=== PATIENT | male | born 1995 | race Caucasian/White ===

== ENCOUNTER 2019-11-29 04:19 | Emergency (ER) | payer MEDICAID ==
[~2019-11-29] VITALS: Ht 167.6 cm; Wt 65.8 kg
--- NOTE | 2019-11-29 04:35 | NUR ---
PT BIBA C/O RECTAL PAIN. PT AAOX4,VSS, RESPIRATIONS EVEN AND UNLABORED ON RA W/ NAD NOTED. PT CONNECTED TO THE MONITOR AND POX
--- NOTE | 2019-11-29 06:04 | NUR ---
Patient's father was called. 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 Patient is provided with a bus pass.
--- NOTE | 2019-11-29 06:04 | NUR ---
Patient discharged to home in stable condition. Written and verbal after care instructions given. Patient verbalizes understanding of instruction.
[2019-11-29 06:05] VITALS: BP 110/63
== END 2019-11-29 06:05 | disposition home or self-care (01) ==
LOC: ER 04:21
DX: K64.4 Residual hemorrhoidal skin tags (principal); F20.9 Schizophrenia, unspecified; F17.200 Nicotine dependence, unspecified, uncomplicated; Z60.2 Problems related to living alone

== ENCOUNTER 2019-12-23 20:03 | Emergency (ER) | payer MEDICAID, OTHER ==
[~2019-12-23] VITALS: Ht 167.6 cm; Wt 65.8 kg
[2019-12-23 20:06] VITALS: BP 150/94
--- NOTE | 2019-12-23 20:09 | NUR ---
PT BIB [employer] FOR BIZARRE BEHAVIOR AND MEDICAL CLEARANCE. PT HAS NO MEDICAL COMPLAINTS AT THIS TIME. PT APPEARS TO BE AGITATED. PT CONNECTED TO THE MONITOR AND POX. AWAITING FOR MD FLORES
--- NOTE | 2019-12-23 20:50 | NUR ---
Patient discharged to [facility] in stable condition. Written and verbal after care instructions given. Patient verbalizes understanding of instruction.
== END 2019-12-23 20:50 ==
LOC: ER 20:05
DX: R46.1 Bizarre personal appearance (principal); Z60.2 Problems related to living alone

== ENCOUNTER 2021-01-14 17:16 | Emergency (ER) | payer MEDICAID, OTHER ==
[~2021-01-14] VITALS: Ht 154.9 cm; Wt 65.8 kg
[2021-01-14] MEDS ORDERED: OLANZAPINE 10 MG VIAL IM ONE ×2 (18:00)
[2021-01-14] MEDS ORDERED: LORAZEPAM INJ 2 MG/ML VIAL IM ONE (18:00)
[2021-01-14] MEDS ORDERED: LORAZEPAM INJ 2 MG/ML VIAL ONE (18:00)
--- NOTE | 2021-01-14 18:08 | NUR ---
BIBRA 58 and [employer] for bizarre behavior, per EMS/[employer] "patient wants to kill himself swinging his skateboard". On room air, sitter at bedside for constant monitoring. Kept comfortable, will continue to monitor accordingly.
[2021-01-14 18:36] LABS: BILIRUBIN,URINE SMALL (NEGATIVE); COLOR,URINE YELLOW (YELLOW); LEUKOCYTE ESTERASE ,URINE NEGATIVE (NEGATIVE); NITRITE, URINE NEGATIVE (NEGATIVE); PROTEIN,URINE TRACE mg/dl (NEGATIVE); UGLUCOSE NEGATIVE (NEGATIVE); UROBILINOGEN,URINE 0.2 EU/dL (0.2)
[2021-01-14 18:42] LABS: CALCIUM, SERUM 9.7 mg/dL (8.5-10.1); CARBON DIOXIDE 24 mmol/L (21-32); CHLORIDE 99 mmol/L (98-107); CREATININE 1.6 mg/dL (0.6-1.3); GLUCOSE 93 mg/dL (74-106); POTASSIUM 3.1 mmol/L (3.5-5.1); SODIUM SERUM 139 mmol/L (136-145); UREA NITROGEN, BLOOD 24 mg/dL (7-18)
[2021-01-14 18:46] LABS: CREATINE KINASE, TOTAL 221 U/L (39-308)
[2021-01-14 18:47] LABS: ALANINE AMINOTRANSFERASE 30 U/L (12-78); ALBUMIN 5.1 g/dL (3.4-5.0); ALKALINE PHOSPHATASE 90 U/L (46-116); ASPARTATE AMINOTRANSFERASE 21 U/L (15-37); BILIRUBIN,DIRECT 0.2 mg/dL (0.0-0.2); BILIRUBIN,TOTAL 0.7 mg/dL (0.2-1.0); TOTAL PROTEIN, SERUM 9.3 g/dL (6.4-8.2)
[2021-01-14 18:47] LABS: BACTERIA,URINE None seen /HPF (None Seen); MUCUS,URINE Few /LPF (None Seen); RBC,URINE 0-2 /HPF (0-2); SQUAMOUS EPITHELIAL CELL,UR 0-2 /HPF (None Seen); WBC,URINE 0-2 /HPF (0-3)
[2021-01-14 18:48] LABS: ALCOHOL, BLOOD < 10 mg/dL (0-0)
[2021-01-14 19:46] LABS: BASOPHILS % (AUTO) 0.3 % (0.0-2.0); EOSINOPHILS % (AUTO) 0.2 % (0.0-6.0); HEMATOCRIT 48 % (39-51); HEMOGLOBIN 16.2 g/dL (13.5-17.5); LYMPHOCYTES # (AUTO) 4.4 K/uL (0.8-4.8); MEAN CORPUSCULAR HGB CONC 34 g/dl (31.0-36.0); MEAN CORPUSCULAR VOLUME 93 fL (80-96); MONOCYTES # (AUTO) 1.1 K/uL (0.1-1.30); MONOCYTES % (AUTO) 8.2 % (2.0-12.0); NEUTROPHILS # (AUTO) 8.1 K/uL (1.8-8.9); NEUTROPHILS % (AUTO) 59.3 % (43.0-81.0); PLATELET COUNT (AUTO) 337 K/uL (150-450); RED BLOOD CELL COUNT(AUTO) 5.11 MIL/uL (4.5-6.0); WHITE BLOOD COUNT (AUTO) 13.7 K/uL (4.3-11.0)
--- NOTE | 2021-01-14 19:56 | NUR ---
UPDATED JEET HAYES
--- NOTE | 2021-01-14 21:07 | NUR ---
COVID SPECIMEN COLLECTED AND SENT TO LAB
--- NOTE | 2021-01-14 22:00 | NUR ---
PATIENT RESTING IN BED. VSS. PATIENT NOT ANSWERING STAFF QUESTIONS AT THIS TIME. PATINET CONNECTED TO MANAGER ETL.
--- NOTE | 2021-01-15 02:05 | NUR ---
Patient discharged to home in stable condition. Written and verbal after care instructions given. Patient verbalizes understanding of instruction.
[2021-01-15 06:03] VITALS: BP 134/68
== END 2021-01-15 02:05 | disposition home or self-care (01) ==
LOC: ER 17:22
DX: F29 Unspecified psychosis not due to a substance or known physiological condition (principal); F15.10 Other stimulant abuse, uncomplicated; Z20.822 Contact with and (suspected) exposure to COVID-19; F20.9 Schizophrenia, unspecified; F17.200 Nicotine dependence, unspecified, uncomplicated; Z85.9 Personal history of malignant neoplasm, unspecified
CPT/HCPCS: 36415; 80048; 80076; 80143; 80307; 80320; 81001; 82550; 85025; 87426; 96372 ×2; 99285; C9803; J2060; J3490; G0480

== ENCOUNTER 2021-11-29 15:36 | Emergency (ER) | payer MEDICAID, OTHER ==
[~2021-11-29] VITALS: Ht 167.6 cm; Wt 79.4 kg
[2021-11-29] MEDS ORDERED: LORAZEPAM INJ 2 MG/ML VIAL IM ONE (16:00)
--- NOTE | 2021-11-29 16:00 | NUR ---
MEGAN RA60 "From Home Bizarre Behavior OD psych". On room air, breathing evenly and unlabored. Kept comfortable, will continue to monitor accordingly.
[2021-11-29] MEDS ORDERED: LORAZEPAM INJ 2 MG/ML VIAL ONE (16:12)
[2021-11-29 16:24] LABS: BASOPHILS % (AUTO) 0.3 % (0.0-2.0); EOSINOPHILS % (AUTO) 0.2 % (0.0-6.0); HEMATOCRIT 38 % (39-51); LYMPHOCYTES # (AUTO) 3.5 K/uL (0.8-4.8); LYMPHOCYTES % (AUTO) 29.5 % (20.0-44.0); MEAN CORPUSCULAR HGB CONC 34 g/dl (31.0-36.0); MEAN CORPUSCULAR VOLUME 90 fL (80-96); MONOCYTES # (AUTO) 0.9 K/uL (0.1-1.30); MONOCYTES % (AUTO) 7.6 % (2.0-12.0); NEUTROPHILS # (AUTO) 7.4 K/uL (1.8-8.9); NEUTROPHILS % (AUTO) 62.4 % (43.0-81.0); PLATELET COUNT (AUTO) 263 K/uL (150-450); RED BLOOD CELL COUNT(AUTO) 4.29 MIL/uL (4.5-6.0); WHITE BLOOD COUNT (AUTO) 11.9 K/uL (4.3-11.0)
[2021-11-29 16:52] LABS: CALCIUM, SERUM 9.1 mg/dL (8.5-10.1); CARBON DIOXIDE 23 mmol/L (21-32); CHLORIDE 107 mmol/L (98-107); GLUCOSE 87 mg/dL (74-106); POTASSIUM 3.3 mmol/L (3.5-5.1); SODIUM SERUM 139 mmol/L (136-145); UREA NITROGEN, BLOOD 11 mg/dL (7-18)
[2021-11-29 17:06] LABS: ALANINE AMINOTRANSFERASE 29 U/L (12-78); ALBUMIN 4.3 g/dL (3.4-5.0); ALCOHOL, BLOOD < 3 mg/dL (0-0); ALKALINE PHOSPHATASE 69 U/L (46-116); ASPARTATE AMINOTRANSFERASE 30 U/L (15-37); BILIRUBIN,DIRECT 0.1 mg/dL (0.0-0.2); BILIRUBIN,TOTAL 0.3 mg/dL (0.2-1.0); TOTAL PROTEIN, SERUM 7.6 g/dL (6.4-8.2)
[2021-11-29 17:07] LABS: ACETAMINOPHEN 0 ug/ml (10-30)
[2021-11-29 18:28] LABS: BILIRUBIN,URINE NEGATIVE (NEGATIVE); COLOR,URINE YELLOW (YELLOW); LEUKOCYTE ESTERASE ,URINE NEGATIVE (NEGATIVE); NITRITE, URINE NEGATIVE (NEGATIVE); PROTEIN,URINE NEGATIVE (NEGATIVE); UGLUCOSE NEGATIVE (NEGATIVE); UROBILINOGEN,URINE 0.2 EU/dL (0.2)
--- NOTE | 2021-11-29 19:46 | NUR ---
AMITA FATHER [phone]
[2021-11-29 19:51] LABS: RBC,URINE 0-2 /HPF (0-2); WBC,URINE 0-2 /HPF (0-3)
[2021-11-29 19:52] LABS: BACTERIA,URINE None seen /HPF (None Seen); MUCUS,URINE Many /LPF (None Seen); SQUAMOUS EPITHELIAL CELL,UR 0-2 /HPF (None Seen)
--- NOTE | 2021-11-29 20:55 | NUR ---
Patient discharged to home in stable condition. Written and verbal after care instructions given. Patient verbalizes understanding of instruction.
[2021-11-29 21:09] VITALS: BP 141/71
== END 2021-11-29 20:55 | disposition home or self-care (01) ==
LOC: ER 15:37
DX: F12.921 Cannabis use, unspecified with intoxication delirium (principal); F15.90 Other stimulant use, unspecified, uncomplicated; F20.9 Schizophrenia, unspecified; Z60.2 Problems related to living alone; Z88.8 Allergy status to other drugs, medicaments and biological substances
CPT/HCPCS: 99283; 96372; 85025; 80048; 80076; 81001; 36415; 80143; 80320; 80307; J2060; G0480

== ENCOUNTER 2023-07-25 15:05 | Emergency (ER) | payer OTHER ==
[~2023-07-25] VITALS: Ht 165.1 cm; Wt 72.1 kg
[2023-07-25 16:04] LABS: BASOPHILS # (AUTO) 0.1 K/uL (0.0-0.2); BASOPHILS % (AUTO) 0.6 % (0.0-2.0); EOSINOPHILS % (AUTO) 0.4 % (0.0-6.0); HEMATOCRIT 44 % (39-51); HEMOGLOBIN 14.7 g/dL (13.5-17.5); LYMPHOCYTES # (AUTO) 2.8 K/uL (0.8-4.8); LYMPHOCYTES % (AUTO) 22.4 % (20.0-44.0); MEAN CORPUSCULAR HEMOGLOBIN 30 PG (26.0-33.0); MEAN CORPUSCULAR HGB CONC 34 g/dl (31.0-36.0); MEAN CORPUSCULAR VOLUME 88 fL (80-96); MONOCYTES # (AUTO) 1.1 K/uL (0.1-1.30); MONOCYTES % (AUTO) 8.8 % (2.0-12.0); NEUTROPHILS # (AUTO) 8.5 K/uL (1.8-8.9); NEUTROPHILS % (AUTO) 67.8 % (43.0-81.0); PLATELET COUNT (AUTO) 361 K/uL (150-450); RED BLOOD CELL COUNT(AUTO) 4.94 MIL/uL (4.5-6.0); RED CELL DISTRIBUTION WIDTH 14.5 % (11.5-15.0); WHITE BLOOD COUNT (AUTO) 12.6 K/uL (4.3-11.0)
[2023-07-25 16:07] LABS: CALCIUM, SERUM 9.9 mg/dL (8.5-10.1); CARBON DIOXIDE 28 mmol/L (21-32); CHLORIDE 99 mmol/L (98-107); CREATININE 1.1 mg/dL (0.6-1.3); GLUCOSE 85 mg/dL (74-106); POTASSIUM 4.1 mmol/L (3.5-5.1); SODIUM SERUM 136 mmol/L (136-145); UREA NITROGEN, BLOOD 21 mg/dL (7-18)
[2023-07-25 16:13] LABS: ACETAMINOPHEN <10 ug/ml (10-30); ALANINE AMINOTRANSFERASE 154 U/L (12-78); ALBUMIN 4.7 g/dL (3.4-5.0); ALCOHOL, BLOOD < 3 mg/dL (0-10); ALKALINE PHOSPHATASE 98 U/L (46-116); ASPARTATE AMINOTRANSFERASE 88 U/L (15-37); BILIRUBIN,DIRECT 0.2 mg/dL (0.0-0.2); BILIRUBIN,TOTAL 0.8 mg/dL (0.2-1.0); SALICYLATE 1.3 mg/dL (2.8-20.0)
[2023-07-25 17:12] LABS: APPEARANCE,URINE Clear (CLEAR); BILIRUBIN,URINE Negative (NEGATIVE); BLOOD, URINE Negative Ery/uL (NEGATIVE); COLOR,URINE YELLOW (YELLOW); KETONES,URINE Negative (NEGATIVE); LEUKOCYTE ESTERASE ,URINE Negative (NEGATIVE); NITRITE, URINE Negative (NEGATIVE); PROTEIN,URINE 30 mg/dl (NEGATIVE); UGLUCOSE Negative (NEGATIVE); UROBILINOGEN,URINE 0.2 EU/dL (0.2)
[2023-07-25 17:34] LABS: AMPHETAMINE, URINE POSITIVE (NEGATIVE); BARBITURATE, URINE NEGATIVE (NEGATIVE); BENZODIAZEPINE, URINE NEGATIVE (NEGATIVE); CANNABINOID, URINE POSITIVE (NEGATIVE); COCCAINE, URINE NEGATIVE (NEGATIVE); OPIATE, URINE NEGATIVE (NEGATIVE); PHENCYCLIDINE SCREEN,URINE NEGATIVE (NEGATIVE)
[2023-07-25 17:39] LABS: ADD URINE CULTURE NO; BACTERIA,URINE Few /HPF (None Seen); SQUAMOUS EPITHELIAL CELL,UR Few /HPF (None Seen)
[2023-07-25] MEDS: OLANZAPINE 5 MG TABLET PO ONE (23:00)
[2023-07-25] MEDS ORDERED: OLANZAPINE 5 MG TABLET ONE (23:00)
[2023-07-26] MEDS ORDERED: OLANZAPINE 5 MG TABLET ONE (14:35)
[2023-07-26] MEDS: OLANZAPINE 5 MG TABLET PO SCH (14:41)
[2023-07-26 18:52] VITALS: BP 127/72; TEMP 99.4; O2SAT 99
== END 2023-07-26 18:52 | disposition home or self-care (01) ==
LOC: ER 15:15
DX: R45.851 Suicidal ideations (principal); F20.9 Schizophrenia, unspecified; Z88.8 Allergy status to other drugs, medicaments and biological substances; Z60.2 Problems related to living alone; Z79.899 Other long term (current) drug therapy; Z20.822 Contact with and (suspected) exposure to COVID-19
CPT/HCPCS: 36415; 80048-TC; 80076-TC; 81001; 85025-TC; G0480

== ENCOUNTER → 2023-12-19 | Emergency (ER) | payer OTHER ==
[~2023-12-19] VITALS: Ht 180.3 cm; Wt 77.1 kg
[~2023-12-19] MED LIST: ERYT3.5O9 LEFTEYE; NALO4SPR BNOSTRILS
--- NOTE | 2023-12-19 11:45 | NUR ---
NIRALI FROM [place] FOR TAKING PCP 1.5 DAY AGO AND FEELING "TIRED". THE PATIENT IS ALERT AND ORIENTED X4. DENIES PAIN. IN ROOM AIR AND DENIES SOB. RESPIRATION REGULAR AND UNLABORED.
[2023-12-19 11:50] VITALS: BP 150/75; TEMP 98.2; O2SAT 97
--- NOTE | 2023-12-19 11:58 | NUR ---
Patient given written and verbal discharge instructions. Patient verbalizes understanding of instructions. Patient is ambulatory with steady gait. Refuses offer of [facility] placement. Patient given list of available shelters in surrounding area.
== END | disposition home or self-care (01) ==
LOC: ER 11:20
DX: F19.10 Other psychoactive substance abuse, uncomplicated (principal); H10.9 Unspecified conjunctivitis; F20.9 Schizophrenia, unspecified; F17.200 Nicotine dependence, unspecified, uncomplicated; Z87.2 Personal history of diseases of the skin and subcutaneous tissue; Z87.39 Personal history of other diseases of the musculoskeletal system and connective tissue; Z60.2 Problems related to living alone; Z88.8 Allergy status to other drugs, medicaments and biological substances; Z59.00 Homelessness unspecified